=== PATIENT | male | born 1985 | race Caucasian/White ===

== ENCOUNTER 2022-02-21 06:39 | Day surgery (SDC) | payer OTHER, SELFPAY ==
[2022-02-21 07:00] VITALS: BP 133/80; PULSE 60; RESP 16; TEMP 36.4; O2SAT 100; BMI 26.9
[2022-02-21] MEDS: Lactated Ringers 1,000 ML 30 ML IV (07:11)
--- NOTE | 2022-02-21 07:43 | HP.PCM_ITS ---
History and Physical Date of Admission: 02/21/22 MALIK NICHOLS, is a 36 M who presents to the office today for chronic PPI use for heartburn. As a baby he had reflux. Then heartburn started about 10 yrs ago any time he eats. He is able to control heartburn with 10 mg prilosec QOD. He recently tried to go off prilosec, took famotidine instead but he had heartburn on the H2 luke. No nausea, vomiting, abd pain, diarrhea, constipation, melena, hematochezia. ROS Const Constitutional: No fatigue ENT ENT: No difficulty swallowing Gastro GI: Positive for heartburn; No abdominal pain, belching, bloating, change in bowel habits, change in stool character, coffee ground emesis, constipation, cramping, diarrhea, difficulty swallowing, feeling full early, excessive flatus, incontinent of stools, Vomiting blood/hematemesis, Blood in stool, loose stools, Black,tarry stools, nausea/dyspepsia, pain with swallowing, vomiting or other Musc Musculoskeletal: No joint pain Skin Skin: No yellowing of the eye or itchy eyes Psych Psychiatric: No anxiety and No depression Endo Endocrine: No fatigue Aller/Imm Allergy/Immunologic: No itchy eyes Raheem/Lymp Hematologic/Lymphatic: No easy bleeding or easy bruising Exam Const General: cooperative, healthy appearing, comfortable, well developed and well groomed Nutritional Appearance: average body habitus Quality Reporting Tobacco Screening ([facility] 138) Smoking Status: Never smoker Assessment and Plan Assessment and Plan (1) GERD (gastroesophageal reflux disease): ?Status:?Acute ?Plan - Carol Haynes [employer], [employer]-C: Continue with omeprazole 10 mg QOD to manage heartburn. We will schedule him for EGD to evaluate for Maurice's, we discussed the precancerous condition. He works at [employer], consumes lots of calcium. f/u 2 wks after EGD I have re-examined the patient. There are no clinical changes since date of exam.
--- NOTE | 2022-02-21 07:45 | EGD_PTH ---
PATIENT: MALIK NOWAK LOC: EN U#:[id number] AGE/SX: 36/M ROOM: RE02/21/[address]: Dr. Nate Brown DO : 1985 BED: DIS: 02/21/2022 SPEC #: [id number] RECD: 02/21/22 13:28 STATUS: ASHLI JOSSY #: [id number] NICOLE: 02/21/22 07:[address]: Nate Brown DEPT: SURGICAL PATHOLOGY RECD BY: Marivel Shirley ENTERED: 02/21/22 14:02 SP TYPE: EGD BIOPSY PEG DR: Dr. Ernst Nowak MD Tissues: Esophagus, NOS Procedures: Special Stain Group II Surgery Specimen Level IV Alcian Blue/PAS (control) HEADER OPERATION: EGD ([facility] [place] PRE-OP DIAGNOSIS: GERD TISSUE SUBMITTED: Distal esophagus biopsy MICROSCOPIC DIAGNOSIS Distal esophagus, biopsy: Fragments of gastroesophageal mucosa with chronic inflammation. Intestinal metaplasia (goblet cell metaplasia) not identified. See comment. SJ:porfirio 02/22/2022 COMMENT Alcian blue/PAS stain with matched control is used in the evaluation of the specimen. The specimen predominantly consists of gastric mucosa. MICROSCOPIC DESCRIPTION Slides are reviewed. GROSS DESCRIPTION Received in fixative is one container labeled with the patient's name and designated distal esophagus biopsy. The specimen consists of multiple irregular fragments of light le soft tissue that in aggregate measure 1.5 x 0.5 x 0.1 cm. The specimen is totally submitted in one cassette. / GAGAN:porfirio 02/21/2022 TC:3 CPT: 67019, 99906
[2022-02-21 08:31] VITALS: BP 123/64; BP 133/80; PULSE 60; RESP 16; TEMP 36.5; O2SAT 100
--- NOTE | 2022-02-21 08:31 | OP.EGD_ITS ---
Patient Name: Galen Nowak Procedure Date: 02/21/2022 8:14 AM Date of : 1985 Age: 36 Procedure: Upper GI endoscopy Indications: Heartburn, Suspected esophageal reflux Providers: Nate Brown DO Medicines: Monitored Anesthesia Care Patient Profile: This is a 36 year old male. Refer to note in patient chart for documentation of history and physical. Patient has symptoms of chronic heartburn. Complications: No immediate complications. Procedure: Pre-Anesthesia Assessment: - Prior to the procedure, a History and Physical was performed, and patient medications and allergies were reviewed. The risks and benefits of the procedure and the sedation options and risks were discussed with the patient. All questions were answered and informed consent was obtained. Patient identification and proposed procedure were verified by the physician in the pre-procedure area. Mental Status Examination: alert and oriented. Airway Examination: normal oropharyngeal airway and neck mobility. Respiratory Examination: clear to auscultation. CV Examination: normal. Prophylactic Antibiotics: The patient does not require prophylactic antibiotics. Prior Anticoagulants: The patient has taken no previous anticoagulant or antiplatelet agents. After reviewing the risks and benefits, the patient was deemed in satisfactory condition to undergo the procedure. The anesthesia plan was to use moderate sedation / analgesia (conscious sedation). Immediately prior to administration of medications, the patient was re-assessed for adequacy to receive sedatives. The heart rate, respiratory rate, oxygen saturations, blood pressure, adequacy of pulmonary ventilation, and response to care were monitored throughout the procedure. The physical status of the patient was re-assessed after the procedure. After obtaining informed consent, the endoscope was passed under direct vision. Throughout the procedure, the patient's blood pressure, pulse, and oxygen saturations were monitored continuously. The Colonoscope was introduced through the mouth, and advanced to the second part of duodenum. The upper GI endoscopy was accomplished without difficulty. The patient tolerated the procedure well. Scope In: 8:21:54 AM Scope Out: 8:25:50 AM Total Procedure Duration Time 0 hours 3 minutes 56 seconds Findings: The Z-line was irregular and was found 39 cm from the incisors. Biopsies were taken with a cold forceps for histology. Verification of patient identification for the specimen was done. Estimated blood loss was minimal. The GE junction appeared to be lax. The entire examined stomach was normal. The second portion of the duodenum was normal. Impression: - Z-line irregular, 39 cm from the incisors. Biopsied. Lax GE junction allowing for regurgitation of acid into the esophagus. No damage seen in the esophagus but they were chronic changes seen in the esophagus consistent with gastroesophageal reflux disease. - Normal stomach. - Normal second portion of the duodenum. Recommendation: - Discharge patient to home. - Resume previous diet. - Continue present medications. - Await pathology results. Procedure Code(s): --- Professional --- 19572, Esophagogastroduodenoscopy, flexible, transoral; with biopsy, single or multiple CPT copyright 2017 [employer]. All rights reserved. The codes documented in this report are preliminary and upon inspector hairspring review may be revised to meet current compliance requirements. Nate Brown DO 02/21/2022 8:31:00 AM This report has been signed electronically. Number of Addenda: 1 Note Initiated On: 02/21/2022 8:14 AM Addendum Number: 1 Addendum Date: 05/04/2022 6:10:22 AM MAC was used as sedation for this procedure. Nate Brown DO 05/04/2022 6:10:27 AM This report has been signed electronically.
[2022-02-21 08:35] VITALS: BP 122/62; BP 133/80; PULSE 60; RESP 16; O2SAT 100
[2022-02-21 08:40] VITALS: BP 132/79; BP 133/80; PULSE 58; RESP 16; O2SAT 100
[2022-02-21 08:45] VITALS: BP 116/62; BP 133/80; PULSE 65; RESP 16; TEMP 36.5; O2SAT 100
[2022-02-21 08:57] VITALS: BP 133/80
== END 2022-02-21 09:17 | disposition home or self-care (01) ==
LOC: EN 06:43 → AC 06:44
PROVIDERS: PCP Family Medicine; Referring Provider Family Medicine; Visit Provider Internal Medicine Gastroenterology
PROC: 0DJ08ZZ Inspection of Upper Intestinal Tract, Via Natural or Artificial Opening Endoscopic (ICD-10-PCS; CPT 43235; principal; 2022-02-21 07:40)
DX: K21.00 Gastro-esophageal reflux disease with esophagitis, without bleeding (principal); Z79.899 Other long term (current) drug therapy
CPT/HCPCS: 43239; 88305; 88313; J7120; J2405

== ENCOUNTER → 2024-03-11 | Outpatient (CLI) | payer OTHER, SELFPAY ==
[2024-03-11 17:45] LABS: Absolute Lymphocyte Count 1.91 X10^3/uL (0.83-4.51); Absolute Neutrophil Count 5.4 X10^3/uL (2.0-7.7); Basophil# 0.03 X10^3/uL; Basophil% 0.4 % (0-1); Eosinophil# 0.25 X10^3/uL; Eosinophils% 3.1 % (0-5); Hematocrit 43.3 % (40-54); Hemoglobin 14.4 g/dL (13.0-16.5); Lymphocyte # 1.91 X10^3/ul (0.83-4.51); Lymphocyte % 23.6 % (19-41); Mean Corp Hgb Conc 33.3 g/dL (32-36); Mean Corpuscular Hgb 29.3 pg (27.0-32.0); Mean Corpuscular Volume 88.2 fL (80-94); Monocyte# 0.48 X10^3/uL; Monocyte% 5.9 % (0-10); NRBC Flagged by Analyzer 0 % (0-5); Neutrophil # 5.39 X10^3/uL (2.7-7.7); Neutrophil % 66.6 % (47-70); Platelet Count 279 K/mm3 (150-450); RBC Distribution Width CV 12.7 % (11.6-14.6); RBC Distribution Width SD 41.1 fl (35.1-43.9); Red Blood Count 4.91 M/mm3 (4.6-6.2); White Blood Count 8.1 K/mm3 (4.4-11.0)
[2024-03-11 18:08] LABS: CRP < 2.90 mg/L (0.0-3.0)
[2024-03-11 22:08] LABS: Hepatitis C Antibody Non-Reactive (Nonreactive)
== END | disposition home or self-care (01) ==
LOC: MFPLAB 15:47
PROVIDERS: PCP Family Medicine; Visit Provider Family Medicine
DX: L04.0 Acute lymphadenitis of face, head and neck (principal)
CPT/HCPCS: 36415; 85025; 86140; 86803

== ENCOUNTER → 2024-03-18 | Outpatient (CLI) | payer OTHER, SELFPAY ==
--- NOTE | 2024-03-18 15:15 | US_ITS ---
STUDY: Soft tissue neck ULTRASOUND REASON FOR EXAM: Male, 39 years old. chronic cerrvical lymph node. submandibular- rt per pt TECHNIQUE: Ultrasound evaluation of the neck was performed with real-time and static last-scale imaging. COMPARISON: None. FINDINGS: Multiple longitudinal and transverse ultrasound images of the right-sided neck near the submandibular gland demonstrate 2 oval hypoechoic masses consistent with lymph nodes measuring 0.4 x 1.2 cm and 0.4 x 1.2 cm. US/Head/Neck Soft Tissue IMPRESSION: Normal ultrasound examination of the neck with 2 normal lymph nodes adjacent to the right submandibular gland.. Electronically Signed: Greg Bauman MD at 9:21 EDT ,
== END | disposition home or self-care (01) ==
LOC: US 15:13
PROVIDERS: PCP Family Medicine; Referring Provider Family Medicine; Visit Provider Family Medicine
DX: L04.0 Acute lymphadenitis of face, head and neck (principal)
CPT/HCPCS: 76536